=== PATIENT | female | born 1985 | race Caucasian/White ===

== ENCOUNTER 2020-09-16 00:54 | Emergency (ER) | payer OTHER ==
[2020-09-16 01:09] VITALS: RESP 18
[2020-09-16 02:08] LABS: Basophils % (A) 0 %; Eosinophils # (A) 0.2 k/uL (0-0.7); Eosinophils % (A) 3 %; HCT 35.8 % (34.0-46.0); HGB 12.4 gm/dL (11.4-16.0); Lymphocytes # (A) 3.8 k/uL (1.0-4.8); Lymphocytes % (A) 45 %; MCH 32.7 pg (25.0-35.0); MCHC 34.7 g/dL (31.0-37.0); Mean Platelet Volume 7.2; Monocytes # (A) 0.4 k/uL (0-1.0); Monocytes % (A) 4 %; Neutrophils # (A) 3.8 k/uL (1.3-7.7); Neutrophils % (A) 46 %; Platelet Count 220 k/uL (150-450); WBC 8.3 k/uL (3.8-10.6)
[2020-09-16 02:21] LABS: African American GFR (CKD) >90 (>60 ml/min/1.73 sqM); Anion Gap 6 mmol/L; Blood Urea Nitrogen 15 mg/dL (7-17); Calcium 9.7 mg/dL (8.4-10.2); Carbon Dioxide 26 mmol/L (22-30); Chloride 105 mmol/L (98-107); Glucose 89 mg/dL (74-99); Non-African American GFR(CKD) >90 (>60 ml/min/1.73 sqM); Potassium 3.9 mmol/L (3.5-5.1); Sodium 137 mmol/L (137-145)
--- NOTE | 2020-09-16 02:44 | XR ---
EXAMINATION TYPE: XR chest 2V DATE OF EXAM: 09/16/2020 COMPARISON: NONE HISTORY: Allergic reaction. Chest pain TECHNIQUE: 2 views FINDINGS: Heart and mediastinum are normal. Lungs are clear. Diaphragm is normal. Bony thorax is inta ct. IMPRESSION: Normal chest.
[2020-09-16] MEDS ORDERED: SULFAMETHOX-TMP 800-160MG 1 EACH TAB PO STA (02:52)
--- NOTE | 2020-09-16 02:52 | ED ---
General Adult HPI - General Chief complaint: Allergic Reaction Stated complaint: Allergic Reaction Time Seen by Provider: 09/16/20 01:21 Source: EMS Mode of arrival: EMS Limitations: no limitations - History of Present Illness Initial comments: Patient is a 34-year-old woman who presents with 2 complaints. She was having some sharp pains to her left shoulder tonight. She also has had some swelling and redness to the right forearm which is been going on for between 1-2 days. Patient has not noticed systemic symptoms. No shortness of breath or cough. No palpitations, lightheadedness or syncope. No chest pain. No fever or chills. Onset/Timin -: days(s) Location: right, upper extremity Radiation: non-radiation Quality: dull Consistency: constant Improves with: none Worsens with: none Associated Symptoms: denies other symptoms - Related Data Previous Rx's Medication Instructions Recorded Sulfamethox-Tmp 800-160Mg [Bactrim 2 each PO Q12HR #28 tab 09/16/20 Ds] Allergies Allergy/AdvReac Type Severity Reaction Status Date / Time codeine Allergy Rash/Hives Verified 09/16/20 01:09 Review of Systems ROS Statement: Those systems with pertinent positive or pertinent negative responses have been documented in the HPI. ROS Other: All systems not noted in ROS Statement are negative. Constitutional: Denies: fever, chills Respiratory: Denies: cough, dyspnea Cardiovascular: Denies: chest pain, palpitations Gastrointestinal: Denies: abdominal pain, nausea, vomiting Musculoskeletal: Reports: as per HPI, arthralgia (Left shoulder) Skin: Reports: as per HPI, lesions, change in color Neurological: Denies: headache, weakness, numbness, paresthesias Past Medical History Past Medical History: No Reported History History of Any Multi-Drug Resistant Organisms: MRSA Past Surgical History: Cholecystectomy, Tubal Ligation Past Psychological History: Anxiety, Depression Smoking Status: Current every day smoker Past Alcohol Use History: None Reported Past Drug Use History: Heroin, Methamphetamine General Exam Limitations: no limitations General appearance: alert, in no apparent distress Head exam: Present: atraumatic, normocephalic Eye exam: Present: normal appearance. Absent: scleral icterus, conjunctival injection Neck exam: Present: normal inspection Respiratory exam: Present: normal lung sounds bilaterally. Absent: respiratory distress, wheezes, rales, rhonchi, stridor Cardiovascular Exam: Present: regular rate, normal rhythm, normal heart sounds. Absent: systolic murmur, diastolic murmur, rubs, gallop GI/Abdominal exam: Present: soft. Absent: distended, tenderness, guarding, rebound, rigid, mass Extremities exam: Present: normal inspection, normal capillary refill. Absent: pedal edema, calf tenderness Back exam: Present: normal inspection. Absent: CVA tenderness (R), CVA tenderness (L) Neurological exam: Present: alert Skin exam: Present: warm, dry, intact, other (Vision has an approximately 4 x 6 cm area of redness and warmth to the right forearm. There is no fluctuance.. Appears to be cellulitis versus very early abscess.) Course Vital Signs 09/16/20 09/16/20 09/16/20 00:58 02:00 03:50 Temperature 98.2 F 97.7 F Pulse Rate 98 78 73 Respiratory 18 18 18 Rate Blood Pressure 115/87 117/80 115/71 O2 Sat by Pulse 100 100 100 Oximetry Medical Decision Making - Medical Decision Making Patient is 31-year-old woman with some sharp intermittent left shoulder pain. Checked a d-dimer to rule out possible PE given a history of IVDA patient will continue on outpatient antibiotic for suspected cellulitis. - Lab Data Result diagrams: 09/16/20 02:00 09/16/20 02:00 Lab Results 09/16/20 09/16/20 09/16/20 Range/Units 02:00 02:00 02:00 WBC 8.3 (3.8-10.6) k/uL RBC 3.80 (3.80-5.40) m/uL Hgb 12.4 (11.4-16.0) gm/dL Hct 35.8 (34.0-46.0) % MCV 94.0 (80.0-100.0) fL MCH 32.7 (25.0-35.0) pg MCHC 34.7 (31.0-37.0) g/dL RDW 13.0 (11.5-15.5) % Plt Count 220 (150-450) k/uL MPV 7.2 Neutrophils % 46 % Lymphocytes % 45 % Monocytes % 4 % Eosinophils % 3 % Basophils % 0 % Neutrophils # 3.8 (1.3-7.7) k/uL Lymphocytes # 3.8 (1.0-4.8) k/uL Monocytes # 0.4 (0-1.0) k/uL Eosinophils # 0.2 (0-0.7) k/uL Basophils # 0.0 (0-0.2) k/uL D-Dimer 0.31 (<0.60) mg/L FEU Sodium 137 (137-145) mmol/L Potassium 3.9 (3.5-5.1) mmol/L Chloride 105 (98-107) mmol/L Carbon Dioxide 26 (22-30) mmol/L Anion Gap 6 mmol/L BUN 15 (7-17) mg/dL Creatinine 0.60 (0.52-1.04) mg/dL Est GFR (CKD-EPI)AfAm >90 (>60 ml/min/1.73 sqM) Est GFR (CKD-EPI)NonAf >90 (>60 ml/min/1.73 sqM) Glucose 89 (74-99) mg/dL Calcium 9.7 (8.4-10.2) mg/dL Disposition Clinical Impression: Cellulitis Disposition: HOME SELF-CARE Condition: Good Instructions (If sedation given, give patient instructions): Cellulitis (ED) Prescriptions: Sulfamethox-Tmp 800-160Mg [Bactrim Ds] 2 each PO Q12HR #28 tab Is patient prescribed a controlled substance at d/c from ED?: No Referrals: None,Stated [Primary Care Provider] - 1-2 days
[2020-09-16 05:08] VITALS: BP 115/71; PULSE 73; TEMP 97.7
== END 2020-09-16 03:50 | disposition home or self-care (01) ==
LOC: EC 00:54
DX: L03.114 Cellulitis of left upper limb (principal); F32.9 Major depressive disorder, single episode, unspecified; F41.9 Anxiety disorder, unspecified; F17.200 Nicotine dependence, unspecified, uncomplicated; F15.90 Other stimulant use, unspecified, uncomplicated
CPT/HCPCS: 36415; 71046; 80048; 85025; 85379; 93005; 99284

== ENCOUNTER 2020-09-17 19:25 | Emergency (ER) | payer OTHER ==
[2020-09-17 19:33] VITALS: RESP 16
--- NOTE | 2020-09-17 20:23 | ED ---
General Adult HPI - General Chief complaint: Vaginal Bleeding Stated complaint: Vaginal Bleeding Time Seen by Provider: 09/17/20 19:26 Source: patient, EMS Mode of arrival: EMS Limitations: no limitations - History of Present Illness Initial comments: 34 year-old female patient presents to the emergency department for evaluation of vaginal bleeding x3 weeks. Patient states she has been at [facility] for methamphetamines since 09/14/20. She states the doctor is concerned about bleeding because she has bruises all over her arms and she has had prolonged vaginal bleeding. Patient denies history of irregular or prolonged periods. Does not take any blood thinners. Denies any abnormal abdominal or back pain. States she has been feeling "spacy" for the last few days. Denies dizziness or weakness. Denies fever or chills. Denies history of bleeding disorders. Has had tubal ligation denies chance of . Patient denies any recent rash, cough, shortness of breath, chest pain, nausea, vomiting, diarrhea, constipation, numbness, tingling, dizziness, weakness, hematuria, dysuria, urinary urgency, urinary frequency, headache, visual changes, or any other complaints. - Related Data Home Medications Medication Instructions Recorded Confirmed Acetaminophen [Tylenol 8 Hour] 650 mg PO Q4H PRN 09/17/20 09/17/20 Cephalexin [Keflex] 500 mg PO BID@0630,1730 09/17/20 09/17/20 Cyproheptadine [Cyproheptadine HCl] 4 mg PO Q4H PRN 09/17/20 09/17/20 Ibuprofen [Motrin] 600 mg PO Q6H PRN 09/17/20 09/17/20 Sulfamethox-Tmp 800-160Mg [Bactrim 1 tab PO BID@0630,1730 09/17/20 09/17/20 Ds] busPIRone HCl [Buspar] 10 mg PO TID PRN 09/17/20 09/17/20 traZODone HCL [Desyrel] 50 - 150 mg PO HS PRN 09/17/20 09/17/20 Allergies Allergy/AdvReac Type Severity Reaction Status Date / Time codeine Allergy Rash/Hives Verified 09/17/20 20:28 Review of Systems ROS Statement: Those systems with pertinent positive or pertinent negative responses have been documented in the HPI. ROS Other: All systems not noted in ROS Statement are negative. Past Medical History Past Medical History: No Reported History History of Any Multi-Drug Resistant Organisms: MRSA Date of last positivie culture/infection: unkn Past Surgical History: Cholecystectomy, Tubal Ligation Past Psychological History: Anxiety, Depression Smoking Status: Current every day smoker Past Alcohol Use History: None Reported Past Drug Use History: Heroin, Methamphetamine General Exam Limitations: no limitations General appearance: alert, in no apparent distress, other (Physical well- developed, well-nourished adult female patient in no acute distress. Vital signs upon presentation Are 97.8F, pulse 97, respirations 16, blood pressure 107/58, pulse ox 99% on room air.) Eye exam: Present: normal appearance, PERRL, EOMI. Absent: scleral icterus, conjunctival injection, periorbital swelling ENT exam: Present: normal exam, normal oropharynx, mucous membranes moist Respiratory exam: Present: normal lung sounds bilaterally. Absent: respiratory distress, wheezes, rales, rhonchi, stridor Cardiovascular Exam: Present: regular rate, normal rhythm, normal heart sounds. Absent: systolic murmur, diastolic murmur, rubs, gallop, clicks GI/Abdominal exam: Present: soft, normal bowel sounds. Absent: distended, tenderness, guarding, rebound, rigid Extremities exam: Present: full ROM, normal capillary refill, other (Multiple areas of ecchymosis to the bilateral arms.). Absent: tenderness, pedal edema, joint swelling, calf tenderness Neurological exam: Present: alert, oriented X3, CN II-XII intact Psychiatric exam: Present: normal affect, normal mood Skin exam: Present: warm, dry, intact, normal color. Absent: rash Course Vital Signs 09/17/20 19:29 Temperature 97.8 F Pulse Rate 97 Respiratory 16 Rate Blood Pressure 107/58 O2 Sat by Pulse 99 Oximetry Medical Decision Making - Medical Decision Making 34-year-old female patient presents to the emergency department today for evaluation of vaginal bleeding x3 weeks and easy bruising. She is currently staying at [facility] physician was concerned. Physical examination does reveal ecchymosis to the bilateral arms and various stages of healing. Abdomen soft and nontender. She is having any abdominal pain. Vaginal exam did reveal scant dark red blood coming from the cervical os. No other abnormalities. Labs reviewed and were unremarkable. Vital signs are within normal range. Ultrasound is negative. I did discuss findings and results with her. She be discharged back to [facility] facility. She is instructed to follow-up with her director call center sales for further evaluation as soon as possible. Return parameters were discussed in detail. She verbalizes understanding and agrees with this plan. My attending is Dr. Retana. - Lab Data Result diagrams: 09/17/20 20:19 09/17/20 20:19 Lab Results 09/17/20 09/17/20 09/17/20 Range/Units 20:19 20:19 20:19 WBC 6.6 (3.8-10.6) k/uL RBC 3.82 (3.80-5.40) m/uL Hgb 12.7 (11.4-16.0) gm/dL Hct 36.3 (34.0-46.0) % MCV 95.1 (80.0-100.0) fL MCH 33.3 (25.0-35.0) pg MCHC 35.0 (31.0-37.0) g/dL RDW 13.2 (11.5-15.5) % Plt Count 239 (150-450) k/uL MPV 7.4 Neutrophils % 52 % Lymphocytes % 38 % Monocytes % 4 % Eosinophils % 3 % Basophils % 0 % Neutrophils # 3.4 (1.3-7.7) k/uL Lymphocytes # 2.5 (1.0-4.8) k/uL Monocytes # 0.3 (0-1.0) k/uL Eosinophils # 0.2 (0-0.7) k/uL Basophils # 0.0 (0-0.2) k/uL PT 9.8 (9.0-12.0) sec INR 0.9 (<1.2) APTT 23.8 (22.0-30.0) sec Sodium (137-145) mmol/L Potassium (3.5-5.1) mmol/L Chloride (98-107) mmol/L Carbon Dioxide (22-30) mmol/L Anion Gap mmol/L BUN (7-17) mg/dL Creatinine (0.52-1.04) mg/dL Est GFR (CKD-EPI)AfAm (>60 ml/min/1.73 sqM) Est GFR (CKD-EPI)NonAf (>60 ml/min/1.73 sqM) Glucose (74-99) mg/dL Calcium (8.4-10.2) mg/dL Total Bilirubin (0.2-1.3) mg/dL AST (14-36) U/L ALT (4-34) U/L Alkaline Phosphatase (38-126) U/L Total Protein (6.3-8.2) g/dL Albumin (3.5-5.0) g/dL Urine Color Yellow Urine Appearance Clear (Clear) Urine pH 6.5 (5.0-8.0) Ur Specific [place] 1.017 (1.001-1.035) Urine Protein Negative (Negative) Urine Glucose (UA) Negative (Negative) Urine Ketones Negative (Negative) Urine Blood Negative (Negative) Urine Nitrite Negative (Negative) Urine Bilirubin Negative (Negative) Urine Urobilinogen <2.0 (<2.0) mg/dL Ur Leukocyte Esterase Negative (Negative) Urine HCG, Qual (Not Detectd) 09/17/20 09/17/20 Range/Units 20:19 20:19 WBC (3.8-10.6) k/uL RBC (3.80-5.40) m/uL Hgb (11.4-16.0) gm/dL Hct (34.0-46.0) % MCV (80.0-100.0) fL MCH (25.0-35.0) pg MCHC (31.0-37.0) g/dL RDW (11.5-15.5) % Plt Count (150-450) k/uL MPV Neutrophils % % Lymphocytes % % Monocytes % % Eosinophils % % Basophils % % Neutrophils # (1.3-7.7) k/uL Lymphocytes # (1.0-4.8) k/uL Monocytes # (0-1.0) k/uL Eosinophils # (0-0.7) k/uL Basophils # (0-0.2) k/uL PT (9.0-12.0) sec INR (<1.2) APTT (22.0-30.0) sec Sodium 137 (137-145) mmol/L Potassium 4.5 (3.5-5.1) mmol/L Chloride 106 (98-107) mmol/L Carbon Dioxide 25 (22-30) mmol/L Anion Gap 6 mmol/L BUN 16 (7-17) mg/dL Creatinine 0.65 (0.52-1.04) mg/dL Est GFR (CKD-EPI)AfAm >90 (>60 ml/min/1.73 sqM) Est GFR (CKD-EPI)NonAf >90 (>60 ml/min/1.73 sqM) Glucose 99 (74-99) mg/dL Calcium 9.7 (8.4-10.2) mg/dL Total Bilirubin <0.1 L (0.2-1.3) mg/dL AST 21 (14-36) U/L ALT 15 (4-34) U/L Alkaline Phosphatase 45 (38-126) U/L Total Protein 6.2 L (6.3-8.2) g/dL Albumin 3.8 (3.5-5.0) g/dL Urine Color Urine Appearance (Clear) Urine pH (5.0-8.0) Ur Specific [place] (1.001-1.035) Urine Protein (Negative) Urine Glucose (UA) (Negative) Urine Ketones (Negative) Urine Blood (Negative) Urine Nitrite (Negative) Urine Bilirubin (Negative) Urine Urobilinogen (<2.0) mg/dL Ur Leukocyte Esterase (Negative) Urine HCG, Qual Not Detected (Not Detectd) - Radiology Data Radiology results: report reviewed, image reviewed Ultrasound of the pelvis was obtained. Report reviewed in its entirety. Impression by Dr. Valentin shows unremarkable uterus and left ovary. Unremarkable adnexa. Nonvisualized right ovary due to bowel gas. Disposition Clinical Impression: Dysfunctional uterine bleeding Disposition: HOME SELF-CARE Condition: Good Instructions (If sedation given, give patient instructions): Dysfunctional Uterine Bleeding (ED) Additional Instructions: Follow-up with your director call center sales for further evaluation as soon as possible. Return to the emergency department for any new, worsening, or concerning symptoms. Is patient prescribed a controlled substance at d/c from ED?: No Referrals: Nonstaff,Physician [Primary Care Provider] - 1-2 days Time of Disposition: 21:40
[2020-09-17 20:25] LABS: Basophils % (A) 0 %; Eosinophils # (A) 0.2 k/uL (0-0.7); Eosinophils % (A) 3 %; HCT 36.3 % (34.0-46.0); HGB 12.7 gm/dL (11.4-16.0); Lymphocytes # (A) 2.5 k/uL (1.0-4.8); Lymphocytes % (A) 38 %; MCH 33.3 pg (25.0-35.0); MCV 95.1 fL (80.0-100.0); Mean Platelet Volume 7.4; Monocytes # (A) 0.3 k/uL (0-1.0); Monocytes % (A) 4 %; Neutrophils # (A) 3.4 k/uL (1.3-7.7); Neutrophils % (A) 52 %; Platelet Count 239 k/uL (150-450); RBC 3.82 m/uL (3.80-5.40); RDW 13.2 % (11.5-15.5); WBC 6.6 k/uL (3.8-10.6)
[2020-09-17 20:26] LABS: Appearance,Urine Clear (Clear); Bilirubin,Urine Negative (Negative); Blood,Urine Negative (Negative); Color,Urine Yellow; Glucose,Urine (UA) Negative (Negative); Ketones,Urine Negative (Negative); Leukocyte Esterase,Urine Negative (Negative); Nitrite,Urine Negative (Negative); PH, Urine 6.5 (5.0-8.0); Protein,Urine Negative (Negative); Specific Gravity,Urine 1.017 (1.001-1.035); Urobilinogen,Urine <2.0 mg/dL (<2.0)
[2020-09-17 20:39] LABS: INR 0.9 (<1.2); Partial Thromboplastin Time 23.8 sec (22.0-30.0); Prothrombin Time 9.8 sec (9.0-12.0)
[2020-09-17 20:50] LABS: ALT 15 U/L (4-34); AST 21 U/L (14-36); African American GFR (CKD) >90 (>60 ml/min/1.73 sqM); Albumin 3.8 g/dL (3.5-5.0); Alkaline Phosphatase 45 U/L (38-126); Anion Gap 6 mmol/L; Blood Urea Nitrogen 16 mg/dL (7-17); Calcium 9.7 mg/dL (8.4-10.2); Carbon Dioxide 25 mmol/L (22-30); Chloride 106 mmol/L (98-107); Glucose 99 mg/dL (74-99); Non-African American GFR(CKD) >90 (>60 ml/min/1.73 sqM); Potassium 4.5 mmol/L (3.5-5.1); Sodium 137 mmol/L (137-145); Total Bilirubin <0.1 mg/dL (0.2-1.3); Total Protein 6.2 g/dL (6.3-8.2)
--- NOTE | 2020-09-17 21:33 | US ---
EXAMINATION TYPE: US transvaginal DATE OF EXAM: 09/17/2020 COMPARISON: NONE CLINICAL HISTORY: 34-year-old female with vaginal bleeding. TECHNIQUE: Transvaginal sonographic images of the pelvis were acquired. Date of LMP: 3 weeks ago EXAM MEASUREMENTS: Uterus: 6.2 x 3.3 x 4.6 cm Endometrial Stripe: 0.3 cm Right Ovary: Not visualized Left Ovary: 1.9 x 1.2 x 1.6 cm 1. Uterus: Anteverted . Homogenous myometrium. 2. Endometrium: Unremarkable. 3. Right Ovary: Not visualized due to large amount of peristalsing bowel 4. Left Ovary: Unremarkable. Spectral, color and waveform doppler imaging shows good arterial and venous flow within the left ov sg there is no evidence for ovarian torsion in the left ovary. 5. Bilateral Adnexa: No abnormal adnexal lesion seen. 6. Posterior cul-de-sac: No significant fluid seen in the cul-de-sac. IMPRESSION: 1. Unremarkable uterus and left ovary. 2. Unremarkable adnexa. 3. Nonvisualized right ovary due to bowel gas.
[2020-09-17 22:05] VITALS: BP 108/70; PULSE 87; TEMP 97.9
== END 2020-09-17 21:50 | disposition home or self-care (01) ==
LOC: EC 19:25
DX: N93.8 Other specified abnormal uterine and vaginal bleeding (principal); S40.022D Contusion of left upper arm, subsequent encounter; S40.021D Contusion of right upper arm, subsequent encounter; F32.9 Major depressive disorder, single episode, unspecified; F41.9 Anxiety disorder, unspecified; F17.200 Nicotine dependence, unspecified, uncomplicated; F15.90 Other stimulant use, unspecified, uncomplicated; X58.XXXD Exposure to other specified factors, subsequent encounter
CPT/HCPCS: 36415; 76830; 80053; 81003; 81025; 85025; 85610; 85730; 93976; 99284

== ENCOUNTER 2024-06-23 13:15 | Emergency (ER) | payer OTHER ==
--- NOTE | 2024-06-23 15:05 | ED ---
Skin/Abscess/FB HPI - General Chief complaint: Skin/Abscess/Foreign Body Stated complaint: abscess Time Seen by Provider: 06/23/24 13:34 Source: patient, EMS, RN notes reviewed Mode of arrival: EMS Limitations: no limitations - History of Present Illness Initial comments: 38-year-old female presents emergency department from [place] with complaint of abscess, cough. Patient states she has had a cough for last 2 or 3 days. She states she feels very achy, possible fever from this. She states that she has been on some antibiotics for left foot, chest/breast abscess. She states this area is when she injected. She denies any abdominal complaints no chest pain otherwise no headache or dizziness. - Related Data Home Medications Medication Instructions Recorded Confirmed Cephalexin [Keflex] 500 mg PO TID 09/17/20 06/23/24 Sulfamethox-Tmp 800-160Mg [Bactrim 1 tab PO BID 09/17/20 06/23/24 Ds] traZODone HCL [Desyrel] 50 - 150 mg PO HS PRN 09/17/20 06/23/24 Acetaminophen Tab [Tylenol] 650 mg PO Q4H PRN 06/23/24 06/23/24 Calcium Phos/D3/Magnesium/Zinc 1 tab PO TID PRN 06/23/24 06/23/24 [Pptokjh-Zew-Uhko-Vitamin D3] Chlorpheniramine Maleate 4 mg PO Q4H PRN 06/23/24 06/23/24 [Chlor-Trimeton] Folic Acid 1 mg PO DAILY PRN 06/23/24 06/23/24 Hyoscyamine Sulfate [Levsin] 0.125 mg PO QID PRN 06/23/24 06/23/24 Ibuprofen [Motrin Ib] 600 mg PO Q6H PRN 06/23/24 06/23/24 Levothyroxine Sodium [Synthroid] 88 mcg PO AC-[id number] 06/23/24 06/23/24 Loperamide [Imodium] 4 mg PO QID PRN 06/23/24 06/23/24 Melatonin 10 mg PO HS 06/23/24 06/23/24 Methadone HCl [Methadone Intensol] 55 mg PO DAILY 06/23/24 06/23/24 Multivitamins, Thera [Multivitamin 1 tab PO DAILY 06/23/24 06/23/24 (formulary)] Mupirocin 2% Oint [Bactroban 2% 1 applic TOPICAL TID 06/23/24 06/23/24 Oint] Mylanta 30 ml PO Q4H PRN 06/23/24 06/23/24 Thiamine [Vitamin B-1] 100 mg PO DAILY 06/23/24 06/23/24 guaiFENesin [guaiFENesin Oral 200 mg PO Q4H PRN 06/23/24 06/23/24 Solution] ondansetron HCL [Zofran] 8 mg PO Q6H PRN 06/23/24 06/23/24 Previous Rx's Medication Instructions Recorded clindamycin HCL 300 mg PO QID #40 cap 06/23/24 Allergies Allergy/AdvReac Type Severity Reaction Status Date / Time codeine Allergy Rash/Hives/ Verified 06/23/24 14:43 Itching Review of Systems ROS Statement: Those systems with pertinent positive or pertinent negative responses have been documented in the HPI. ROS Other: All systems not noted in ROS Statement are negative. Past Medical History Past Medical History: No Reported History Additional Past Medical History / Comment(s): [place], History of Any Multi-Drug Resistant Organisms: MRSA Date of last positivie culture/infection: 2011 MDRO Source:: Groin Past Surgical History: Cholecystectomy, Tubal Ligation Past Psychological History: Anxiety, Depression Smoking Status: Current every day smoker, V[place] Past Alcohol Use History: None Reported Past Drug Use History: Heroin, Methamphetamine General Exam Limitations: no limitations General appearance: alert, in no apparent distress Head exam: Present: atraumatic, normocephalic, normal inspection Eye exam: Present: normal appearance, PERRL, EOMI. Absent: scleral icterus, conjunctival injection, periorbital swelling ENT exam: Present: normal exam, normal oropharynx, mucous membranes moist Neck exam: Present: normal inspection, full ROM. Absent: tenderness, meningismus, lymphadenopathy Respiratory exam: Present: normal lung sounds bilaterally. Absent: respiratory distress, wheezes, rales, rhonchi, stridor Cardiovascular Exam: Present: regular rate, normal rhythm, normal heart sounds. Absent: systolic murmur, diastolic murmur, rubs, gallop, clicks GI/Abdominal exam: Present: soft, normal bowel sounds. Absent: distended, tenderness, guarding, rebound, rigid Extremities exam: Present: other (Left foot there is an open abscess is minimal erythema nontender surrounding and neurovascular intact) Neurological exam: Present: alert Skin exam: Present: other Course Vital Signs 06/23/24 13:26 Temperature 97.9 F Pulse Rate 79 Respiratory 18 Rate Blood Pressure 108/75 O2 Sat by Pulse 98 Oximetry Procedures - Incision & Drainage Consent Obtained: verbal consent Site: chest Size (cm): 2 I&D Cleaning Method: Alcohol Wipe Sterile Field Used?: No Needle Aspiration Performed?: Yes I&D Drainage Obtained: Pus Loculation Noted: probing needed to break Insertion of drain: No Culture Obtained?: Yes Patient Tolerated Procedure: well, no complications Medical Decision Making - Medical Decision Making Was pt. sent in by a medical professional or institution (ARMIDA Landers, INVESTMENT ACCOUNTANT, urgent care, hospital, or [facility]...) When possible be specific @ -[place] Did you speak to anyone other than the patient for history (EMS, parent, family, police, friend...)? What history was obtained from this source @ -No Did you review nursing and triage notes (agree or disagree)? Why? @ -I reviewed and agree with nursing and triage notes Were old charts reviewed (outside hosp., previous admission, EMS record, old EKG, old radiological studies, urgent care reports/EKG's, [facility] records)? Report findings @ -No old charts were reviewed Differential Diagnosis (chest pain, altered mental status, abdominal pain women, abdominal pain men, vaginal bleeding, weakness, fever, dyspnea, syncope, headache, dizziness, GI bleed, back pain, seizure, CVA, palpatations, mental health, musculoskeletal)? @ -COVID 19, RSV, influenza, pneumonia, acute bronchitis, URI, this list is not all inclusive, abscess, cellulitis, EKG interpreted by me (3pts min.). @ -None X-rays interpreted by me (1pt min.). @ -Chest x-ray shows no acute cardiopulmonary process X-ray of left foot no ice abnormality no acute foreign body CT interpreted by me (1pt min.). @ -None done U/S interpreted by me (1pt. min.). @ -None done What testing was considered but not performed or refused? (CT, X-rays, U/S, labs)? Why? @ -None What meds were considered but not given or refused? Why? @ -None Did you discuss the management of the patient with other professionals (professionals i.e. , PA, INVESTMENT ACCOUNTANT, lab, RT, psych nurse, health care social worker, breaker operator, teacher, special weapons unit officer, lining caser)? Give summary @ -No Was smoking cessation discussed for >3mins.? @ -No Was critical care preformed (if so, how long)? @ -No Were there social determinants of health that impacted care today? How? (Homelessness, low income, unemployed, alcoholism, drug addiction, transportation, low edu. Level, literacy, decrease access to med. care, nursing home, rehab)? @ -No Was there de-escalation of care discussed even if they declined (Discuss DNR or withdrawal of care, Hospice)? DNR status @ -No What co-morbidities impacted this encounter? (DM, HTN, Smoking, COPD, CAD, Cancer, CVA, ARF, Chemo, Hep., AIDS, mental health diagnosis, sleep apnea, morbid obesity)? @ -Opiate abuse Was patient admitted / discharged? Hospital course, mention meds given and route, prescriptions, significant lab abnormalities, going to OR and other pertinent info. @ -Charge patient presented for abscess. Patient to have breast abscess which was drained, patient had notable healing wound on the left foot no drainable abscess noted. Patient had URI symptoms negative Cepheid negative x-ray. Undiagnosed new problem with uncertain prognosis? @ -No Drug Therapy requiring intensive monitoring for toxicity (Heparin, Nitro, Insulin, Cardizem)? @ -No Were any procedures done? @ -I&D Diagnosis/symptom? @ -Abscess breast, left foot wound, URI Acute, or Chronic, or Acute on Chronic? @ -Acute Uncomplicated (without systemic symptoms) or Complicated (systemic symptoms)? @ -Uncomplicated Side effects of treatment? @ -No Exacerbation, Progression, or Severe Exacerbation? @ -No Poses a threat to life or bodily function? How? (Chest pain, [place], [place], pneumonia, PE, COPD, DKA, ARF, appy, cholecystitis, CVA, Diverticulitis, Homicidal, Suicidal, threat to staff... and all critical care pts) @ -No - Lab Data Lab Results 06/23/24 Range/Units 14:33 Influenza Type A (PCR) Not Detected (Not Detectd) Influenza Type B (PCR) Not Detected (Not Detectd) RSV (PCR) Not Detected (Not Detectd) SARS-CoV-2 (PCR) Not Detected (Not Detectd) Disposition Clinical Impression: Chest wall abscess, URI (upper respiratory infection), Wound of foot Disposition: HOME SELF-CARE Condition: Stable Instructions (If sedation given, give patient instructions): Abscess Incision and Drainage (DC) Additional Instructions: Please return to the Emergency Department if symptoms worsen or any other concerns. Prescriptions: clindamycin HCL 300 mg PO QID #40 cap Is patient prescribed a controlled substance at d/c from ED?: No Referrals: Marya Conner FNPBC [REFERRING] - 1-2 days (Contact a primary care office to become established with a provider.) None,Stated [Primary Care Provider] - 1-2 days Forms: Area PCPs Time of Disposition: 15:30
--- NOTE | 2024-06-23 15:07 | XR ---
EXAMINATION TYPE: XR chest 2V DATE OF EXAM: 06/23/2024 CLINICAL INDICATION: Female, 38 years old with history of cough, TECHNIQUE: Frontal and lateral views of the chest are obtained. COMPARISON: September 16, 2020 FINDINGS: There is no focal air space opacity, pleural effusion, or pneumothorax seen. The cardiac silhouette size is within normal limits. The osseous structures are intact. IMPRESSION: No acute pulmonary infiltrate. [facility], , 06/23/2024 3:05 PM
--- NOTE | 2024-06-23 15:08 | XR ---
EXAMINATION TYPE: XR foot complete LT DATE OF EXAM: 06/23/2024 CLINICAL INDICATION: Female, 38 years old with history of pain, pain TECHNIQUE: Frontal, lateral, and oblique images of the left foot are obtained. COMPARISON: None FINDINGS: There is no acute fracture/dislocation evident in the left foot. Hallux valgus deformity f irst metatarsophalangeal joint. There is flexion and varus positioning distal fifth toe. Overlying so ft tissue is unremarkable. IMPRESSION: There is no acute finding in the left foot. [facility], , 06/23/2024 3:06 PM
[2024-06-23 15:13] LABS: Influenza A Not Detected (Not Detectd); Influenza B Not Detected (Not Detectd); RSV Not Detected (Not Detectd)
[2024-06-23 16:08] VITALS: BP 111/76; PULSE 76; RESP 20; TEMP 98.3
== END 2024-06-23 16:08 | disposition home or self-care (01) ==
LOC: EC 13:15
DX: S91.302A Unspecified open wound, left foot, initial encounter (principal); L02.213 Cutaneous abscess of chest wall; N61.1 Abscess of the breast and nipple; J06.9 Acute upper respiratory infection, unspecified; F17.290 Nicotine dependence, other tobacco product, uncomplicated; F19.10 Other psychoactive substance abuse, uncomplicated; Z88.5 Allergy status to narcotic agent; X58.XXXA Exposure to other specified factors, initial encounter
CPT/HCPCS: 10060; 71046; 87070; 87205; 87636; 99283